=== PATIENT | female | born 1965 | race Caucasian/White ===

== ENCOUNTER → 2016-12-01 | Outpatient (CLI) | payer OTHER ==
[~2016-12-01] MED LIST: FLONASE 0.05% D16 GM NS; ZITHROMAX250 MG PO; ZOVIRAX5 GM TP; [UNRECOGNIZED DRUG - OTHER] PO
== END | disposition home or self-care (01) ==
LOC: RAD.S 07:55
DX: Z12.31 Encounter for screening mammogram for malignant neoplasm of breast (principal)